=== PATIENT | female | born 1965 ===

== ENCOUNTER 2020-07-30 07:33 | Day surgery (SDC) | payer OTHER ==
[~2020-07-30 07:33] MED LIST: CELEXA10 MG PO; CONGENTIN; HALDOL5 MG/1 ML
== END 2020-07-30 13:40 | disposition home or self-care (01) ==
LOC: CIR.AMB 07:33
PROVIDERS: ATTEND Obstetrics & Gynecology
DX: N95.0 Postmenopausal bleeding (principal); Z20.828 Contact with and (suspected) exposure to other viral communicable diseases